=== PATIENT | female | born 1995 | race Two or more races ===

== ENCOUNTER 2018-04-06 21:07 | Emergency (ER) | payer BC ==
[~2018-04-06] VITALS: Ht 154.9 cm; Wt 43.1 kg
--- NOTE | 2018-04-06 21:15 | NUR ---
PT C/O SEVERE ABD PAIN SINCE LAST NIGHT. PT STATES "THE PAIN MOVES PLACE TO PLACE". PT ON MONITOR IN BED 2. WILL CONTINUE TO MONITOR.
[2018-04-06] MEDS ORDERED: METOCLOPRAMIDE HCL 10 MG/2 ML VIAL IV ONE (21:30)
[2018-04-06] MEDS ORDERED: MORPHINE SULFATE INJ 2 MG/ML DISP.SYRIN IV ONE (21:30)
[2018-04-06] MEDS ORDERED: IV NS 0.9% 1,000 ML BAG IV ONE (21:30)
[2018-04-06] MEDS ORDERED: MORPHINE SULFATE INJ 4 MG/ML DISP.SYRIN ONE (21:48)
[2018-04-06] MEDS ORDERED: METOCLOPRAMIDE HCL 10 MG/2 ML VIAL ONE (21:48)
[2018-04-06 21:49] LABS: BASOPHILS % (AUTO) 0.4 % (0.0-2.0); EOSINOPHILS % (AUTO) 1.4 % (0.0-6.0); HEMATOCRIT 30 % (33-45); HEMOGLOBIN 10.5 g/dL (11.5-14.8); LYMPHOCYTES # (AUTO) 2.6 /CMM (0.8-4.8); LYMPHOCYTES % (AUTO) 37.5 % (20.0-44.0); MEAN CORPUSCULAR HGB CONC 35 g/dl (31.0-36.0); MEAN CORPUSCULAR VOLUME 91 fL (82-100); MONOCYTES # (AUTO) 0.6 /CMM (0.1-1.30); MONOCYTES % (AUTO) 8.7 % (2.0-12.0); NEUTROPHILS # (AUTO) 3.6 /CMM (1.8-8.9); PLATELET COUNT (AUTO) 400 /CMM (150-450); RED BLOOD CELL COUNT(AUTO) 3.34 MIL/uL (4.0-5.2)
[2018-04-06 22:00] LABS: CALCIUM, SERUM 9.2 mg/dL (8.5-10.1); CREATININE 0.6 mg/dL (0.6-1.3)
[2018-04-06 22:09] LABS: ALBUMIN 4.2 g/dL (3.4-5.0); BILIRUBIN,TOTAL 0.3 mg/dL (0.2-1.0)
[2018-04-06 22:10] LABS: TOTAL PROTEIN, SERUM 8.5 g/dL (6.4-8.2)
--- NOTE | 2018-04-06 22:18 | NUR ---
PT RECEIVED PAIN MEDICATION VIA IV AND REQUESTED TO REMOVE THE IV DUE TO PAIN. PT REFUSED TO RECEIVE 1L NORMAL SALINE.
[2018-04-06] MEDS ORDERED: POTASSIUM CHLORIDE 20 MEQ TAB.PRT.SR PO ONE ×3 (22:30→22:31)
--- NOTE | 2018-04-06 22:59 | NUR ---
Patient discharged to home in stable condition. Written and verbal after care instructions given. Patient verbalizes understanding of instruction.
[2018-04-06 23:00] VITALS: BP 101/66
== END 2018-04-06 23:00 | disposition home or self-care (01) ==
LOC: ER 21:10
DX: E87.6 Hypokalemia (principal); K31.84 Gastroparesis; R94.31 Abnormal electrocardiogram [ECG] [EKG]; F50.2 Bulimia nervosa; F17.200 Nicotine dependence, unspecified, uncomplicated; Z88.8 Allergy status to other drugs, medicaments and biological substances; Z60.2 Problems related to living alone
CPT/HCPCS: 36415; 80048-TC; 80076-TC; 82962-TC; 83690-TC; 85025-TC; A4606; J2270; J2765; J7030; Z7610